=== PATIENT | female | born 1960 | race Caucasian/White ===

== ENCOUNTER 2017-05-09 18:25 | Emergency (ER) | payer MEDICARE, OTHER ==
[~2017-05-09] VITALS: Ht 162.6 cm; Wt 74.8 kg
[~2017-05-09 18:25] MED LIST: ANTIVERT25 MG PO; ASPIRIN EC81 MG PO; AZITHROMYCIN500 MG PO; BUSPIRONE HCL15 MG PO; BUSPIRONE HCL30 MG PO; CALTRATE 600 +1 EAC1 PO; CYMBALTA60 MG PO; DAILY VITAMIN1 EAC2 PO; DEPAKOTE ER250 MG PO; DIPHENHYDRAMINE50 MG PO; DIVALPROEX SOD250 M1 PO; DIVALPROEX SOD500 MG PO; DSS250 MG PO; EFFEXOR XR150 MG PO; EFFEXOR XR37.5 MG PO; FLUCONAZOLE150 MG PO; FOLTANX TABLET1 EACH PO; GABAPENTIN400 MG PO; GABAPENTIN600 MG PO; GEODON40 MG PO; GLIPIZIDE ER2.5 MG PO; IBUPROFEN600 MG PO; JANUVIA100 MG PO; JANUVIA25 MG PO; KLONOPIN2 MG PO; LASIX20 MG PO; LEVOTHYROXINE50 MCG PO; MAPAP325 MG PO; METFORMIN HCL500 MG PO; MILK OF MA400 MG/5 M PO; MYRBETRIQ50 MG PO; NAPROXEN500 MG PO; NORCO 5-325 TA1 EACH PO; PEPCID40 MG PO; PRAVASTATIN SOD20 MG PO; PRAZOSIN HCL1 MG PO; PROTONIX40 MG PO; QVAR7.3 G1 INH; QVAR7.3 GM INH; SENNA8.6 MG PO; SEPTRA DS TABL1 EACH PO; STOOL SOFTENER PO; SULFAMETHOXAZO1 EAC1 PO; SULFAMETHOXAZO1 EACH PO; TAB A VITE1 EACH PO; TRAMADOL HCL50 MG PO; TRAZODONE HCL150 MG PO; VALPROIC ACID250 MG PO; VENLAFAXINE HC150 MG PO; VENLAFAXINE HCL75 M1 PO; VITAMIN D PO; VITAMIN D1000 UNIT PO; VITAMIN D32000 UNIT PO; WELLBUTRIN SR100 MG PO
--- OUTSIDE RECORDS SUMMARY | 2017-05-09 18:53 | XMS ---
Demographics + + + | Address | [address] | | | [address] | | | [place] [address] | + + + | Preferred Language | Unknown | + + + | Marital Status | Unknown | + + + | Adventist Affiliation | Unknown | + + + | Race | Unknown | + + + | Ethnic Group | Unknown | + + + Author + + + | Author | [facility] | + + + | Organization | [facility] | + + + | Address | [address] | | | [place] [address] | + + + | Phone | | + + + Care Team Providers + + + + | Care Bright Cutter Name | Role | Phone | + + + + Unavailable | Unavailable | + + + + PROBLEMS +---------+ + + +--------+ + + | Type | Condition | ICD9-CM | [id number] | Onset | Condition | SNOMED | | | | Code | Code | Dates | Status | Code | +---------+ + + +--------+ + + | Problem | Slow | | K59.01 | | Active | [id number] | | | transit | | | | | | | | constipati | | | | | | | | on | | | | | | +---------+ + + +--------+ + + | Problem | Arthritis | | M19.90 | | Active | 9813029 | +---------+ + + +--------+ + + | Problem | Seizure | | G40.909 | | Active | 782166233 | | | disorder | | | | | | +---------+ + + +--------+ + + | Problem | Screening | Z13.89 | | | Active | [id number] | | | for | | | | | | | | alcoholism | | | | | | +---------+ + + +--------+ + + | Problem | Schizoaffe | | F25.1 | | Active | 91566332 | | | ctive | | | | | | | | disorder, | | | | | | | | depressive | | | | | | | | type | | | | | | +---------+ + + +--------+ + + | Problem | Mixed | | N39.46 | | Active | [id number] | | | incontinen | | | | | | | | ce | | | | | | +---------+ + + +--------+ + + | Problem | Need for | | Z41.8 | | Active | | | | prophylaxi | | | | | | | | s against | | | | | | | | urinary | | | | | | | | tract | | | | | | | | infection | | | | | | +---------+ + + +--------+ + + | Problem | Unspecifie | | F79 | | Active | 83111280 | | | d | | | | | | | | intellectu | | | | | | | | al | | | | | | | | disabiliti | | | | | | | | es | | | | | | +---------+ + + +--------+ + + | Problem | Dyspepsia | R10.13 | | | Active | 500573606 | +---------+ + + +--------+ + + | Problem | Acquired | E03.9 | | | Active | 989804843 | | | hypothyroi | | | | | | | | dism | | | | | | +---------+ + + +--------+ + + | Problem | Hyperchole | | E78.0 | | Active | 56871957 | | | sterolemia | | | | | | +---------+ + + +--------+ + + | Problem | Type 2 | E11.9 | | | Active | 387166976 | | | diabetes | | | | | | | | mellitus | | | | | | | | without | | | | | | | | complicati | | | | | | | | on | | | | | | +---------+ + + +--------+ + + | Problem | 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 | | | Active | [id number] | | | obesity | | | | | | | | due to | | | | | | | | excess | | | | | | | | calories | | | | | | +---------+ + + +--------+ + + | Problem | Vitamin D | | E55.9 | | Active | 78732807 | | | deficiency | | | | | | +---------+ + + +--------+ + + ALLERGIES No Information SOCIAL HISTORY Never Assessed PLAN OF CARE VITAL SIGNS MEDICATIONS Unknown Medications RESULTS No Results PROCEDURES No Known procedures IMMUNIZATIONS No Known Immunizations MEDICAL (GENERAL) HISTORY + + + + | Type | Description | Date | + + + + | Medical History | Seizure disorder last | | | | episode 2009 | | + + + + | Medical History | DM | | + + + + | Medical History | Asthma | | + + + + | Medical History | Allergies | | + + + + | Medical History | Sleep Apnea on CPAP has not | | | | used it much at all, does | | | | not like the mask | | + + + + | Medical History | Urinary Incontinence | | | | urologwilliam Amado | | + + + + | Medical History | | | + + + + | Medical History | GERD contributing to | | | | chronic Laryngitis - ENT Dr | | | | Sera was started on PPI | | | | 01/16/12 | | + + + + | Medical History | Hypothyriod TSH 4.95 07/20/12 | | + + + + | Medical History | Schizoaffective d/o 295.7 | | + + + + | Medical History | PTSD 309.81 | | + + + + | Medical History | Personality d/o 301.9 | | + + + + | Medical History | Mild Mental Retardation 317 | | + + + + | Medical History | Irritable Bowel Syndrome | | | | (on Lomotil prior to 2007 | | | | to 05/17/11, d/c'ed due to | | | | possibley contributing to | | | | confusion.Gian started | | | | 12/2007 to 07/2011 when she | | | | transfered care 09/2011 it | | | | was not listed, but it was | | | | not d/c'ed by previous PCP) | | + + + + | Medical History | Hypothyroid | | + + + + | Medical History | Onychomycosis toes | | + + + + | Medical History | Medical nutrition therapy | | | | by registerd dietitian is | | | | recommended and obtained | | | | 11/07/12 | | + + + + | Medical History | pt indicates in case of | | | | events resulting in a | | | | vegitative state where she | | | | is non verbal and non | | | | ambulatory she does not | | | | want to be maintained on | | | | artificial nutrition. | | | | 11/17/16 | | + + + + | Surgical History | Kidney stones | | + + + + | Surgical History | Foot Surgery | | + + + + | Surgical History | Colonoscopy Dr Elba encarnacion | 03/05/12 | | | appearing colon and anal | | | | rectum | | + + + + | Surgical History | Cholecystectomy | | + + + + | Surgical History | Papsmear Dr Marlow | 06/07/10 07/12/11 | + + + + | Surgical History | Mammogram | 03/09/17 | + + + + | Surgical History | Colposcopy Dr Marlow | 07/07/10 | + + + + | Surgical History | DARIEN b/l LE 1.0, nl values, | 01/10/13 | | | Dr Kyle | | + + + + | Surgical History | EEG - nl | 02/06/13 | + + + + | Surgical History | Occult blood IA stool | 04/15/16 | | | negative | | + + + + | Hospitalization History | [facility] re: diarrhea | 02/07/12 | + + + + | Hospitalization History | [facility] re: abdominal pain | 03/09/12 | + + + + | Hospitalization History | [facility] re: b/l ear pain | 08/14/12 | + + + + | Hospitalization History | [facility] re: blood mixed in | 08/20/12 | | | her stool | | + + + + | Hospitalization History | [facility] re: chest pain, acid | 09/28/12 | | | reflux | | + + + + | Hospitalization History | [facility] re: elevated BS, | 12/10/12 | | | asymptomatic | | + + + + | Hospitalization History | [facility] re: R hand pain, x-ray | 12/24/12 | | | negative | | + + + + | Hospitalization History | [facility] re: felt ill at | 01/06/13 | | | restaurant, dizzy belly | | | | pain loose BM | | + + + + | Hospitalization History | [facility] re: R Knee pain | 02/24/13 | + + + + | Hospitalization History | [facility] re: R knee pain, | 03/16/13 | | | fall | | + + + + | Hospitalization History | [facility] re: abdominal pain | 04/05/13 | + + + + | Hospitalization History | [facility] re: fall | 05/19/13 | + + + + | Hospitalization History | [facility] re: L knee pain | 06/17/13 | + + + + | Hospitalization History | [facility] re: pt was scared | 06/26/13 | | | and went to ER, but made | | | | the story that she had | | | | taken too much medicaitons. | | + + + + | Hospitalization History | [facility] re: L foot postop | 09/21/13 | + + + + | Hospitalization History | [facility] re: trouble | 10/15/13 | | | breathing | | + + + + | Hospitalization History | [facility] re: R arm pain | 10/20/13 | + + + + | Hospitalization History | [facility] re: BS | 12/07/13 | + + + + | Hospitalization History | [facility] re: L knee pain | 12/27/13 | + + + + | Hospitalization History | [facility] re: cough, SOB, | 04/05/14 | | | dizzy, hotflashes | | + + + + | Hospitalization History | [facility] re:SOB | 05/31/14 | + + + + | Hospitalization History | [facility] re:cough | 06/30/13 | + + + + | Hospitalization History | [facility] re: R ear abrasion | 10/02/14 | | | bleeding | | + + + + | Hospitalization History | [facility] re: weakness | 11/02/15 | + + + + | Hospitalization History | [facility] re: vertigo | 02/19/16 | + + + + | Hospitalization History | [facility] re: abscess, abd | 05/02/16 | + + + + | Hospitalization History | [facility] re: chest pain | 11/10/16 | + + + +"
--- OUTSIDE RECORDS SUMMARY | 2017-05-09 18:53 | XMS ---
Demographics + + + | Address | [address] | | | [address] | | | [place] [address] | + + + | Preferred Language | Unknown | + + + | Marital Status | Unknown | + + + | Mosque Affiliation | Unknown | + + + | Race | Unknown | + + + | Ethnic Group | Unknown | + + + Author + + + | Author | [facility] | + + + | Organization | [facility] | + + + | Address | [address] | | | [place] [address] | + + + | Phone | | + + + Care Team Providers + + + + | Care Rubber Trimmer Name | Role | Phone | + + + + Unavailable | Unavailable | + + + + PROBLEMS +---------+ + + +--------+ + + | Type | Condition | ICD9-CM | [id number] | Onset | Condition | SNOMED | | | | Code | Code | Dates | Status | Code | +---------+ + + +--------+ + + | Problem | Slow | | K59.01 | | Active | [id number] | | | transit | | | | | | | | constipati | | | | | | | | on | | | | | | +---------+ + + +--------+ + + | Problem | Arthritis | | M19.90 | | Active | 6961481 | +---------+ + + +--------+ + + | Problem | Seizure | | G40.909 | | Active | 934934156 | | | disorder | | | | | | +---------+ + + +--------+ + + | Problem | Screening | Z13.89 | | | Active | 496386010 | | | for | | | | | | | | alcoholism | | | | | | +---------+ + + +--------+ + + | Problem | Schizoaffe | | F25.1 | | Active | 49248133 | | | ctive | | | | | | | | disorder, | | | | | | | | depressive | | | | | | | | type | | | | | | +---------+ + + +--------+ + + | Problem | Mixed | | N39.46 | | Active | 142414735 | | | incontinen | | | [...] | | F79 | | Active | 03853914 | | | d | | | | | | | | intellectu | | | | | | | | al | | | | | | | | disabiliti | | | | | | | | es | | | | | | +---------+ + + +--------+ + + | Problem | Dyspepsia | R10.13 | | | Active | 613430414 | +---------+ + + +--------+ + + | Problem | Acquired | E03.9 | | | Active | 215083406 | | | hypothyroi | | | | | | | | dism | | | | | | +---------+ + + +--------+ + + | Problem | Hyperchole | | E78.0 | | Active | 84694905 | | | sterolemia | | | | | | +---------+ + + +--------+ + + | Problem | Type 2 | E11.9 | | | Active | 165348299 | | | diabetes | | | [...] | E66.09 | | | Active | 403151836 | | | obesity | | | | | | | | due to | | | | | | | | excess | | | | | | | | calories | | | | | | +---------+ + + +--------+ + + | Problem | Vitamin D | | E55.9 | | Active | 50923719 | | | deficiency | | | | | | +---------+ + + +--------+ + + ALLERGIES Unknown Allergies SOCIAL HISTORY No smoking Hx information available PLAN OF CARE VITAL SIGNS MEDICATIONS Unknown Medications RESULTS No Results PROCEDURES No Known procedures IMMUNIZATIONS No Known Immunizations"
--- OUTSIDE RECORDS SUMMARY | 2017-05-09 18:53 | XMS ---
Demographics + + + | Address | [address] | | | [address] | | | [place] [address] | + + + | Preferred Language | Unknown | + + + | Marital Status | Unknown | + + + | Tenriism Affiliation | Unknown | + + + | Race | Unknown | + + + | Ethnic Group | Unknown | + + + Author + + + | Author | [facility] | + + + | Organization | [facility] | + + + | Address | [address] | | | [place] [address] | + + + | Phone | | + + + Care Team Providers + + + + | Care Box Sorter Name | Role | Phone | + + + + Unavailable | Unavailable | + + + + PROBLEMS +---------+ + + +--------+ + + | Type | Condition | ICD9-CM | [id number] | Onset | Condition | SNOMED | | | | Code | Code | Dates | Status | Code | +---------+ + + +--------+ + + | Problem | Slow | | K59.01 | | Active | 78680875 | | | transit | | | | | | | | constipati | | | | | | | | on | | | | | | +---------+ + + +--------+ + + | Problem | Arthritis | | M19.90 | | Active | 4052756 | +---------+ + + +--------+ + + | Problem | Seizure | | G40.909 | | Active | 300054753 | | | disorder | | | | | | +---------+ + + +--------+ + + | Problem | Screening | Z13.89 | | | Active | 937720387 | | | for | | | | | | | | alcoholism | | | | | | +---------+ + + +--------+ + + | Problem | Schizoaffe | | F25.1 | | Active | 80315270 | | | ctive | | | | | | | | disorder, | | | | | | | | depressive | | | | | | | | type | | | | | | +---------+ + + +--------+ + + | Problem | Mixed | | N39.46 | | Active | 038920387 | | | incontinen | | | [...] | | F79 | | Active | 89857681 | | | d | | | | | | | | intellectu | | | | | | | | al | | | | | | | | disabiliti | | | | | | | | es | | | | | | +---------+ + + +--------+ + + | Problem | Dyspepsia | R10.13 | | | Active | 689356988 | +---------+ + + +--------+ + + | Problem | Acquired | E03.9 | | | Active | 840567094 | | | hypothyroi | | | | | | | | dism | | | | | | +---------+ + + +--------+ + + | Problem | Hyperchole | | E78.0 | | Active | 57984961 | | | sterolemia | | | | | | +---------+ + + +--------+ + + | Problem | Type 2 | E11.9 | | | Active | 562763710 | | | diabetes | | | [...] | E66.09 | | | Active | 780183995 | | | obesity | | | | | | | | due to | | | | | | | | excess | | | | | | | | calories | | | | | | +---------+ + + +--------+ + + | Problem | Vitamin D | | E55.9 | | Active | 88606207 | | | deficiency | | | | | | +---------+ + + +--------+ + + ALLERGIES + + + + +--------+ | Substance | Reaction | Event Type | Date | Status | + + + + +--------+ | Amoxicillin | rash, trouble | Drug Allergy | Nov, | Active | | | breathing | | | | + + + + +--------+ | Metformin HCl | possible | Drug Allergy | Nov, | Active | | | diarrhea | | | | + + + + +--------+ | Lomotil | possible | Drug Allergy | Nov, | Active | | | confusion | | | | + + + + +--------+ SOCIAL HISTORY No smoking Hx information available PLAN OF CARE + +---------+ | Activity | Details | + +---------+ +---+ | | +---+ + + + | Follow Up | 4 Months Reason:null | + + + VITAL SIGNS + + + + | Height | 64 in | 2016-11-17 | + + + + | Weight | 149.2 lbs | 2016-11-17 | + + + + | BMI | 25.61 kg/m2 | 2016-11-17 | + + + + | Temperature | 98.7 degrees Fahrenheit | 2016-11-17 | + + + + | Heart Rate | 73 /min | 2016-11-17 | + + + + | Blood pressure systolic | 138 mm Hg | 2016-11-17 | + + + + | Blood pressure diastolic | 80 mm Hg | 2016-11-17 | + + + + MEDICATIONS + + + + + + + +--------+ | Medicati | Instruct | Dosage | Frequenc | Start | End Date | Duration | Status | | on | ions | | y | Date | | | | + + + + + + + +--------+ | Docusate | Orally | 1 | 12h | | | | Active | | Sodium | bid | capsule | | | | | | | 250 MG | | as | | | | | | | | | needed | | | | | | + + + + + + + +--------+ | Vitamin | Orally | 1 | 24h | | | | Active | | D3 1000 | Once a | capsule | | | | | | | UNIT | day | | | | | | | + + + + + + + +--------+ | Venlafax | Orally | 1 | 24h | | | | Active | | ine HCl | Once a | capsule | | | | | | | 300 mg | day | with | | | | | | | | | food | | | | | | + + + + + + + +--------+ | Acetamin | Orally | 1 | 6h | | | | Active | | ophen | every 6 | capsules | | | | | | | 650 mg | hrs | as | | | | | | | | | needed | | | | | | + + + + + + + +--------+ | Caltrate | | | | | | | Active | | 600+D | | | | | | | | | 600-800 | | | | | | | | | MG-UNIT | | | | | | | | + + + + + + + +--------+ | BuPROPio | Orally | 1 tablet | 12h | | | | Active | | n HCl | Twice a | | | | | | | | 100 MG | day | | | | | | | + + + + + + + +--------+ | Metamuci | Orally | 1 tsp in | 24h | | | | Active | | l Smooth | daily | 8oz | | | | | | | Texture | | water | | | | | | | 58.6 % | | | | | | | | + + + + + + + +--------+ | Levothyr | | TAKE ONE | | | | | Active | | oxine | | TABLET | | | | | | | Sodium | | BY MOUTH | | | | | | | 50 MCG | | EVERY | | | | | | | | | MORNING | | | | | | | | | ON EMPTY | | | | | | | | | STOMACH | | | | | | + + + + + + + +--------+ | Foltanx | Orally | 1 tablet | 12h | | | | Active | | 3-35-2 | Twice a | | | | | | | | MG | day | | | | | | | + + + + + + + +--------+ | BusPIRon | Orally | 1 tablet | | | | | Active | | e HCl 30 | Three a | | | | | | | | mg | day | | | | | | | | | breakfas | | | | | | | | | t, | | | | | | | | | lunch, | | | | | | | | | dinner | | | | | | | + + + + + + + +--------+ | Gabapent | Orally | 1 tablet | 8h | | | | Active | | in 300 | tid | | | | | | | | MG | | | | | | | | + + + + + + + +--------+ | Magnesiu | Orally | 1 tablet | 24h | | | | Active | | m 100 mg | daily | with | | | | | | | | | food | | | | | | + + + + + + + +--------+ | Senokot | Orally | 1 tablet | 12h | | | | Active | | S 8.6-50 | Twice a | | | | | | | | MG | day | | | | | | | + + + + + + + +--------+ | Famotidi | | TAKE ONE | | | | | Active | | ne 40 MG | | TABLET | | | | | | | | | BY MOUTH | | | | | | | | | TWICE A | | | | | | | | | DAY | | | | | | + + + + + + + +--------+ | Senna | Orally | 1 | 24h | | | | Active | | 8.6 MG | Once a | capsules | | | | | | | | day | at | | | | | | | | | bedtime | | | | | | | | | as | | | | | | | | | needed | | | | | | + + + + + + + +--------+ | Januvia | Orally | take one | 24h | | | 30 days | Active | | 25 MG | Once a | tablet | | | | | | | | day | by mouth | | | | | | | | | every | | | | | | | | | day | | | | | | + + + + + + + +--------+ | Geodon | Orally | 1 | 24h | | | | Active | | 40 mg | daily | capsule | | | | | | | | | with | | | | | | | | | food | | | | | | + + + + + + + +--------+ | Symbicor | Inhalati | 1 puff | 12h | 18 Sep, | 13 October, | | Active | | t 80-4.5 | on Twice | | | 2017 | 2018 | | | | MCG/ACT | a day | | | | | | | + + + + + + + +--------+ | Pravasta | Orally | 1 tablet | 24h | | | | Active | | tin | Once a | | | | | | | | Sodium | day | | | | | | | | 20 MG | | | | | | | | + + + + + + + +--------+ RESULTS No Results PROCEDURES + + + + + | Procedure | Date Ordered | Related Diagnosis | Body Site | + + + + + | Office Visit, Est | November 17, 2016 | | | | Pt., Level 4 | | | | + + + + + IMMUNIZATIONS No Known Immunizations"
[2017-05-09] MEDS ORDERED: DUCODYL5 MG PO (20:31)
== END 2017-05-09 20:50 | disposition home or self-care (01) ==
LOC: ED 18:25
DX: K59.00 Constipation, unspecified (principal); E11.9 Type 2 diabetes mellitus without complications; Z87.442 Personal history of urinary calculi; Z90.710 Acquired absence of both cervix and uterus; Z90.49 Acquired absence of other specified parts of digestive tract; Z91.038 Other insect allergy status; Z79.899 Other long term (current) drug therapy
CPT/HCPCS: 74177; 80053; 81001; 83690; 84703; 85025; 96374; 96375; 99284; J1885; J2405; Q9967

== ENCOUNTER 2017-07-18 17:54 | Emergency (ER) | payer MEDICARE, OTHER ==
[~2017-07-18] VITALS: Ht 162.6 cm; Wt 74.8 kg
--- OUTSIDE RECORDS SUMMARY | ~2017-07-18 | XMS | Clinical Summary ---
Demographics + + + | Address | [address] | | | [place] [address] | + + + | Home Phone | | + + + | Preferred Language | Unknown | + + + | Marital Status | Single | + + + | Temple Affiliation | Unknown | + + + [...] | Unavailable | + + + Support +------+ +---------+ + | Name | Relationship | Address | Phone | +------+ +---------+ + ECON | Unknown | | +------+ +---------+ + Care Team Providers + +------+ + | Care Safe Expert Name | Role | Phone | + +------+ + | Mehdi Zavaleta DO | PP | | + +------+ + Source Comments [facility] is fully live on both [facility] Amb[facility] and [facility] InPatient.[facility] Allergies No Known Allergies Current Medications + [...]
--- OUTSIDE RECORDS SUMMARY | ~2017-07-18 | XMS | Clinical Summary ---
Demographics + + + | Address | [address] | | | [place] [address] | + + + | Home Phone [...] Team Providers + +------+ + | Care Inspector Fibrous Wallboard Name | Role | Phone | + +------+ + | Mehdi Zavaleta DO | PP | | + +------+ + Source Comments [facility] is fully live on both [facility] and [facility] InPatient.[facility] Allergies No Known Allergies Current Medications [...]
[~2017-07-18 17:54] MED LIST changes: +DUCODYL5 MG PO
[2017-07-18] MEDS ORDERED: MELOXICAM15 MG PO (20:53)
== END 2017-07-18 21:04 | disposition home or self-care (01) ==
LOC: ED 17:54
DX: S46.911A Strain of unspecified muscle, fascia and tendon at shoulder and upper arm level, right arm, initial encounter (principal); E11.9 Type 2 diabetes mellitus without complications; Z91.030 Bee allergy status; Z88.5 Allergy status to narcotic agent; Z79.899 Other long term (current) drug therapy; X58.XXXA Exposure to other specified factors, initial encounter
CPT/HCPCS: 99283

== ENCOUNTER 2017-08-16 20:18 | Emergency (ER) | payer MEDICARE, OTHER ==
[~2017-08-16] VITALS: Ht 162.6 cm; Wt 74.8 kg
--- OUTSIDE RECORDS SUMMARY | ~2017-08-16 | XMS | Clinical Summary ---
Demographics + + + | Address | [address] | | | [place] [address] | + + + | Home Phone | | + + + | Preferred Language | Unknown | + + + | Marital Status | Single | + + + | Hinduism Affiliation | Unknown | + + + | Race | White | + + + | Ethnic Group | Not or | + + + Author + + + | Author | [facility] REVENUE LOC[facility] | + + + | Organization | NON REVENUE LOCATIONS | + + + | Address | Unknown | + + + | Phone | Unavailable | + + + Support + + +---------+ + | Name | Relationship | Address | Phone | + + +---------+ + | DALILA DURAN | ECON | Unknown | | + + +---------+ + Care Team Providers + +------+ + | Care Jacquard Fixer Name | Role | Phone | + +------+ + | Mehdi Zavaleta DO | PP | | + +------+ + Source Comments [facility] is fully live on both [facility] Amb[facility] and [facility] InPatient.[facility] Allergies No Known Allergies Current Medications + + +-------+---------+------+------+-------+ | Prescription | Sig. | Disp. | Refills | Star | End | Statu | | | | | | t | Date | s | | | | | | Date | | | + + +-------+---------+------+------+-------+ | DIPHENHYDRAMINE | Take by mouth. | | | | | Activ | | HCL (BENADRYL ORAL) | | | | | | e | + + +-------+---------+------+------+-------+ | busPIRone 15 mg | Take 15 mg by mouth | | | | | Activ | | oral tablet | two times daily. | | | | | e | + + +-------+---------+------+------+-------+ | divalproex ER 250 | Take 250 mg by mouth | | | | | Activ | | mg oral tablet | once daily. | | | | | e | | extended release 24 | | | | | | | | hr | | | | | | | + + +-------+---------+------+------+-------+ | venlafaxine XR 150 | Take 150 mg by mouth | | | | | Activ | | mg oral | two times daily. | | | | | e | | capsule,extended | | | | | | | | release 24hr | | | | | | | + + +-------+---------+------+------+-------+ | famotidine 40 mg | Take 40 mg by mouth | | | | | Activ | | oral tablet | two times daily. | | | | | e | + + +-------+---------+------+------+-------+ | gabapentin 300 mg | Take 300 mg by mouth | | | | | Activ | | oral capsule | three times daily. | | | | | e | + + +-------+---------+------+------+-------+ | gabapentin 600 mg | Take 600 mg by mouth | | | | | Activ | | oral tablet | three times daily. | | | | | e | + + +-------+---------+------+------+-------+ | glipiZIDE 2.5 mg | Take 2.5 mg by mouth | | | | | Activ | | oral tablet | once daily with | | | | | e | | | breakfast. | | | | | | + + +-------+---------+------+------+-------+ | sitaGLIPtin | Take 50 mg by mouth | | | | | Activ | | (JANUVIA) 50 mg oral | once daily. | | | | | e | | tablet | | | | | | | + + +-------+---------+------+------+-------+ | levothyroxine 50 | Take 50 mcg by mouth | | | | | Activ | | mcg oral tablet | once daily. | | | | | e | + + +-------+---------+------+------+-------+ | pravastatin 20 mg | Take 20 mg by mouth | | | | | Activ | | oral tablet | once daily at | | | | | e | | | bedtime. | | | | | | + + +-------+---------+------+------+-------+ | prazosin 2 mg oral | Take 2 mg by mouth | | | | | Activ | | capsule | two times daily. | | | | | e | + + +-------+---------+------+------+-------+ | beclomethasone 40 | Inhale 2 puffs. | | | | | Activ | | mcg/actuation | | | | | | e | | inhalation aerosol | | | | | | | | (aero) | | | | | | | + + +-------+---------+------+------+-------+ | cholecalciferol, | Take 2,000 Units by | | | | | Activ | | Vitamin D3, (VITAMIN | mouth once daily. | | | | | e | | D3) 2,000 unit oral | | | | | | | | capsule | | | | | | | + + +-------+---------+------+------+-------+ | senna (SENNA) 8.6 | Take 8.6 mg by mouth | | | | | Activ | | mg oral tablet | once daily. | | | | | e | + + +-------+---------+------+------+-------+ | CALCIUM CARBONATE | Take by mouth. | | | | | Activ | | (CALTRATE 600 ORAL) | | | | | | e | + + +-------+---------+------+------+-------+ | MAGNESIUM ORAL | Take 50 mg by mouth. | | | | | Activ | | | | | | | | e | + + +-------+---------+------+------+-------+ | | Take by mouth. | | | | | Activ | | MV/FA/D3/K/LYCOP/LUT | | | | | | e | | /HERB#220 | | | | | | | | (ESTROBLEND ORAL) | | | | | | | + + +-------+---------+------+------+-------+ Active Problems + + + | Problem | Noted Date | + + + | Unqualified visual loss of both eyes | 11/01/2014 | + + + | Subjective visual disturbance | 11/01/2014 | + + + + + | Overview: ICD10 | + + + + + | Visual field defect | 11/01/2014 | + + + + + | Overview: ICD10 | + + + + + | Drusen (degenerative) of retina | 11/01/2014 | + + + Social History + +-------+ [...] on file | | + + + Plan of Treatment + + + + + | Health Maintenance | Due Date | Last Done | Comments | + + + + + | INFLUENZA VACCINE | | | | | (FLU SHOT) | 7 | | | + + + + + Results Not on filefrom Last 3 Months"
--- OUTSIDE RECORDS SUMMARY | ~2017-08-16 | XMS | Clinical Summary ---
Demographics + + + | Address | [address] | | | [place] [address] | + + + | Home Phone | | + + + | Preferred Language | Unknown | + + + | Marital Status | Single | + + + | Orthodox Affiliation | Unknown | + + [...] Team Providers + +------+ + | Care Circuit Tester Name | Role | Phone | + +------+ + | Mehdi Zavaleta DO | PP | | + +------+ + Source Comments STEVEN is fully live on both [facility] Allergies No Known Allergies Current Medications + [...]
[~2017-08-16 20:18] MED LIST changes: +MELOXICAM15 MG PO
[2017-08-16] MEDS ORDERED: BACTRIM 400-801 EACH PO (21:27)
--- NOTE | 2017-08-18 07:21 | EKG ---
[facility] [address] [place], [place] [address] Signed Normal sinus rhythm Cannot rule out Anterior infarct , age undetermined Abnormal ECG When compared with ECG of 10-NOV-2016 15:34, No significant change was found Confirmed by SEEMA BROOKS MD ([id number]) on 08/18/2017 7:21:38 AM Electronically Signed By: SEEMA BROOKS MD 08/18/17 0721 PATIENT NAME: MARCO DURAN Electrocardiogram DATE OF : 60 PHYSICIAN: SEEMA BROOKS MD REPORT #: [id number] REPORT IS CONFIDENTIAL AND NOT TO BE RELEASED WITHOUT AUTHORIZATION
== END 2017-08-16 22:13 | disposition home or self-care (01) ==
LOC: ED 20:18
DX: R07.89 Other chest pain (principal); E11.9 Type 2 diabetes mellitus without complications; J45.909 Unspecified asthma, uncomplicated; Z88.0 Allergy status to penicillin; Z88.5 Allergy status to narcotic agent; Z91.030 Bee allergy status; Z79.899 Other long term (current) drug therapy; Z88.8 Allergy status to other drugs, medicaments and biological substances; Z79.84 Long term (current) use of oral hypoglycemic drugs
CPT/HCPCS: 71045; 71046; 80053; 84484; 85025; 85379; 93005; 93010; 96374; 99284; J1885

== ENCOUNTER 2018-02-18 19:10 | Emergency (ER) | payer MEDICARE, OTHER ==
[~2018-02-18] VITALS: Ht 162.6 cm; Wt 74.8 kg
[~2018-02-18 19:10] MED LIST changes: +BACTRIM 400-801 EACH PO
== END 2018-02-18 22:53 | disposition home or self-care (01) ==
LOC: ED 19:10
DX: M79.605 Pain in left leg (principal); E11.9 Type 2 diabetes mellitus without complications; Z91.030 Bee allergy status; Z88.0 Allergy status to penicillin; Z88.5 Allergy status to narcotic agent; Z88.8 Allergy status to other drugs, medicaments and biological substances; Z79.899 Other long term (current) drug therapy
CPT/HCPCS: 93971; 99283

== ENCOUNTER 2018-03-10 16:42 | Emergency (ER) | payer MEDICARE, OTHER ==
[~2018-03-10] VITALS: Ht 162.6 cm; Wt 74.8 kg
--- OUTSIDE RECORDS SUMMARY | ~2018-03-10 | XMS | Clinical Summary ---
Demographics + + + | Address | [address] | | | [place] [address] | + + + | Home Phone | | + + + | Preferred Language | Unknown | + + + | Marital Status | Single | + + + | Zoroastrian Affiliation | Unknown | + + + [...] Team Providers + +------+ + | Care Railroad Mechanic Name | Role | Phone | + +------+ + | Mehdi Zavaleta DO | PP | | + +------+ + Source Comments STEVEN is fully live on both [facility] and [facility] Allergies No Known Allergies Current Medications + [...] | | | | (FLU SHOT) | 8 | | | + + + + + Results Not on filefrom Last 3 Months Insurance + +--------+ +--------+-------+---------+ | Payer | Benefi | Subscriber | Type | Phone | Address | | | t Plan | ID | | | | | | / | | | | | | | Group | | | | | + +--------+ +--------+-------+---------+ | HAND I BLOCKER MEDICAID | HAND I BLOCKER | xxxxxxxx | Medica | | | | | [place] | | id | | | | | [place] | | | | | + +--------+ +--------+-------+---------+ + +--------+ +--------+ + + | Guarantor Name | Accoun | Relation to | Date | Phone | Billing Address | | | t Type | Patient | of | | | | | | | | | | + +--------+ +--------+ + + | THERESA DURAN | Person | Self [birth year] Home: | [address] | | | al/Fam | | 1960 | [phone] | [address] [place] | | | [place] | | | [phone] | + +--------+ +--------+ + +"
--- OUTSIDE RECORDS SUMMARY | ~2018-03-10 | XMS | Clinical Summary ---
Demographics + + + | Address | [address] | | | [place] [address] | + + + | Home Phone | | + + + | Preferred Language | Unknown | + + + | Marital Status | Single | + + + | Moravian Affiliation | Unknown | + + + [...] Team Providers + +------+ + | Care Brewery Cellar Worker Name | Role | Phone | + +------+ + | Mehdi Zavaleta DO | PP | | + +------+ + Source Comments STEVEN is fully live on both [facility] and [facility] InPatient.[facility] Allergies No Known Allergies Current [...] | | | + +--------+ +--------+-------+---------+ | SOFTWARE DEVELOPMENT TEST ENGINEER MEDICAID | SOFTWARE DEVELOPMENT TEST ENGINEER | xxxxxxxx | Medica | | | [...] | [place] | | | [phone] | [phone] | + +--------+ +--------+ + +"
--- OUTSIDE RECORDS SUMMARY | 2018-03-10 16:48 | XMS ---
PreManage Notification: MARCO DURAN Security Gastroenterology Nurse Practitioner Events No recent Security Events currently on file CRITERIA MET - Group Notification - [facility] - 2 Visits in 30 Days CARE PROVIDERS NUBIA MUSA Internal Medicine 02/20/2018-Current PHONE: [phone] NUBIA MUSA Primary Care 03/05/2014-Current PHONE: [phone] Mariely has no Care Guidelines for this patient. Care History Medical/Surgical 02/20/2018 [facility] - Patient is currently established with [facility]. If patient is seen in the ED during business hours. Please contact CHWs at [facility]. Care Recommendation: This patient has had 5 or more Emergency Department visits in the last 12 months.\T\nbsp; Patient requires education on the scope and purpose of the ED as an acute care provider not a Primary Care Provider and should not be utilized for chronic conditions.\T\nbsp; These are guidelines and the provider should exercise clinical judgment when providing care. E.D. VISIT COUNT (12 MO.) 5 [facility] TOTAL 5 NOTE: Visits indicate total known visits. ED/UCC VISIT TRACKING (12 MO.) 03/10/2018 16:43 [facility] [place] TYPE: Emergency COMPLAINT: - R RING FINGER PAIN/INJURY 02/18/2018 19:11 [facility] [place] TYPE: Emergency COMPLAINT: - L LEG PAIN-NON INJURY DIAGNOSES: - Bee allergy status - Allergy status to penicillin - Type 2 diabetes mellitus without complications - Other senior care (current) drug therapy - Pain in left leg - Allergy status to narcotic agent status - Allergy status to other drugs, medicaments and biological substances status 08/16/2017 20:18 [facility] [place] TYPE: Emergency COMPLAINT: - CHEST PAIN DIAGNOSES: - Allergy status to penicillin - nursing home (current) use of oral hypoglycemic drugs - Type 2 diabetes mellitus without complications - Bee allergy status - Unspecified asthma, uncomplicated - Allergy status to narcotic agent status - Other chest pain - Allergy status to other drugs, medicaments and biological substances status - 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 [place] TYPE: Emergency COMPLAINT: - RLQ PAIN DIAGNOSES: - Type 2 diabetes mellitus without complications - Right lower quadrant pain - Acquired absence of other specified parts of digestive tract - Acquired absence of both cervix and uterus - Other insect allergy status - Personal history of urinary calculi - Constipation, unspecified - Other senior care (current) drug therapy INPATIENT VISIT TRACKING (12 MO.) No inpatient visits to display in this time frame [id number]
[2018-03-10] MEDS ORDERED: IBUPROFEN600 MG PO (17:27)
== END 2018-03-10 17:50 | disposition home or self-care (01) ==
LOC: ED 16:42
DX: S62.634A Displaced fracture of distal phalanx of right ring finger, initial encounter for closed fracture (principal); S66.304A Unspecified injury of extensor muscle, fascia and tendon of right ring finger at wrist and hand level, initial encounter; W22.8XXA Striking against or struck by other objects, initial encounter; E11.9 Type 2 diabetes mellitus without complications; J45.909 Unspecified asthma, uncomplicated; Z91.030 Bee allergy status; Z88.0 Allergy status to penicillin; Z88.5 Allergy status to narcotic agent; Z88.8 Allergy status to other drugs, medicaments and biological substances; Z79.899 Other long term (current) drug therapy
CPT/HCPCS: 73140; 99283

== ENCOUNTER 2020-02-27 11:39 | Emergency (ER) | payer MEDICARE, OTHER ==
[~2020-02-27] VITALS: Ht 162.6 cm; Wt 74.8 kg
--- OUTSIDE RECORDS SUMMARY | ~2020-02-27 | XMS | Encounter Summary ---
Demographics + + + | Address | [address] | | | [place] [address] | + + + | Home Phone | | + + + | Preferred Language | Unknown | + + + | Marital Status | Single | + + + | Gnosticism Affiliation | Unknown | + + + | Race | White | + + + | Ethnic Group | Not or | + + + Author + + + | Author | [facility] | + + + | Organization | [facility] | + + + | Address | Unknown | + + + | Phone | Unavailable | + + + Support + + +---------+ + | Name | Relationship | Address | Phone | + + +---------+ + | Jaswinder Black | ECON | Unknown | | + + +---------+ + Care Team Providers + +------+ + | Care Computer Security Specialist Name | Role | Phone | + +------+ + PCP | Unavailable | + +------+ + Encounter Details +--------+ + + + + | Date | Type | Department | Care Team | Description | +--------+ + + + + | 12/23/ | Document-Sc | UNKNOWN DEPARTMENT | Unknown . | | | 2013 | anned | [address] | | | | | | [address] | | | | | | [place], [place] | | | | | | [address] | | | +--------+ + + + + Social History + +-------+ +--------+------+ | Tobacco Use | Types | Packs/Day | Years | Date | | | | | Used | | + +-------+ +--------+------+ | Never Assessed | | | | | + +-------+ +--------+------+ + + + | Sex Assigned at | Date Recorded | | | | + + + | Not on file | | + + + documented as of this encounter Miscellaneous Notes Scan - Monica, Faculty - 12/23/2013 1:03 PM PDTElectronically signed by Faculty Monica at 1:03 PM PDTdocumented in this encounter Plan of Treatment Not on filedocumented as of this encounter Visit Diagnoses Not on filedocumented in this encounter"
--- OUTSIDE RECORDS SUMMARY | ~2020-02-27 | XMS | Encounter Summary ---
Demographics + + + | Address | [address] | | | [place] [address] | + + + | Home Phone | | + + + | Preferred Language | Unknown | + + + | Marital Status | Single | + + + | Faith Affiliation | Unknown | + + + | Race | White | + + + | Ethnic Group | Not or | + + + Author + + + | Author | [facility] | + + + | Organization | [facility] | + + + | Address | Unknown | + + + | Phone | Unavailable | + + + Support + + +---------+ + | Name | Relationship | Address | Phone | + + +---------+ + | Jaswinder Black | ECON | Unknown | | + + +---------+ + Care Team Providers + +------+ + | Care Maintenance Of Way Supervisor Name | Role | Phone | + +------+ + | Mehdi Zavaleta DO | PCP | | + +------+ + Reason for Visit + + + | Reason | Comments | + + + | New patient | | | consultation | | + + + Encounter Details +--------+---------+ + + + | Date | Type | Department | Care Team | Description | +--------+---------+ + + + | 10/31/ | Office | [facility] | Alber Medina MD,PhD | Subjective visual | | 2015 | Visit | [facility] | [address] | disturbance, | | | | at [facility] [address] | unspecified (Primary | | | | [address] [place] | [place], [place] | Dx); Unqualified | | | | [facility] [address] | [address] | visual loss of both | | | | floor [place], [place] | [phone] | eyes; Visual field | | | | [address] | | defect, unspecified; | | | | | | Drusen | | | | | | (degenerative) of | | | | | | retina, bilateral | +--------+---------+ + + + Social History + +-------+ +--------+------+ | Tobacco Use | Types | Packs/Day | Years | Date | | | | | Used | | + +-------+ +--------+------+ | Never Smoker | | | | | + +-------+ +--------+------+ + + + | Sex Assigned at | Date Recorded | | | | + + + | Not on file | | + + + documented as of this encounter Progress Notes Rod Craig - 10/31/2014 12:56 PM PDTFormatting of this note might be different from t he original. Ophthalmic Genetics New Patient Exam Referring Diagnosis: VF loss Referring Physician: Hans Sim, OD [facility] [address] [place] [id number] Theresa Black is a 54 y.o. female here for evaluation of decreasing vision. Patient repo rts noticing her vision started to worsen about 5 years ago. She states she is unable to don d small print and needs to get close in order to read signs and recognize people. She also r eports poor night vision and difficulty seeing objects and persons from the side. However, f rom the perspective of the caregiver, there does not seem to be changes in her visual behavi or out of the normal. She has 3 other siblings, one of which also lives in an adult mobile equipment servicer facility, and [facility] who lives alone, but requires assistance. The nature of the mental disability in this pa tient of her siblings is unknown to the behavioral health case manager here today. This patient is accompanied in the office by her adult mobile equipment servicer, Marycruz. Pain: No pain (0 of 0-10) Current Outpatient Prescriptions Medication beclomethasone 40 mcg/actuation inhalation aerosol (aero) busPIRone 15 mg oral tablet CALCIUM CARBONATE (CALTRATE 600 ORAL) cholecalciferol, Vitamin D3, (VITAMIN D3) 2,000 unit oral capsule DIPHENHYDRAMINE HCL (BENADRYL ORAL) divalproex ER 250 mg oral tablet extended release 24 hr famotidine 40 mg oral tablet gabapentin 300 mg oral capsule gabapentin 600 mg oral tablet glipiZIDE 2.5 mg oral tablet levothyroxine 50 mcg oral tablet MAGNESIUM ORAL MV/FA/D3/K/LYCOP/LUT/HERB#220 (ESTROBLEND ORAL) pravastatin 20 mg oral tablet prazosin 2 mg oral capsule senna (SENNA) 8.6 mg oral tablet sitaGLIPtin (JANUVIA) 50 mg oral tablet venlafaxine XR 150 mg oral capsule,extended release 24hr No current facility-administered medications for this visit. No Known Allergies Past Medical History (Nonocular): Past Surgical History (Nonocular): Past Medical History Diagnosis Date Diabetes mellitus, type 2 Thyroid disease Development delay Panic attacks History of seizure Balance problem Past Surgical History Procedure Laterality Date Toe surgery Tubal ligation Kidney stone surgery Past Ocular History: presbyopia Tobacco: History Smoking status Never Smoker Smokeless tobacco Not on file Review of Systems: Review of systems were reviewed by me at this visit utilizing Genetics patient questionnair e. Pertinent positives noted in history. All else unless noted was negative (fever, wt. ch elpidio, ENT, cardiovascular, respiratory, endocrine, GI, urinary, skin, muscle, bones, joints, neurologic, behavioral,endocrine, psychiatric, bleeding/blood disorders, AIDS/HIV, cancer o r tumors, arthritis) All else unless noted was negative (cataracts, retina, strabismus, amblyopia, low vision or blindness, refractive error, glaucoma, color or night blindness or unexplained vision loss) . Physical examination: Base Exam Visual Acuity (Snellen - Linear) Right Left Both Dist cc 20/80 20/80 20/70 Dist ph cc NI NI Near cc J7 J7 J7 Tonometry (Tonopen, 1:35 PM) Right Left Pressure 14 14 Wearing Rx Sphere Cylinder Beaman Add Right -0.75 +0.50 014 +2.50 Left -1.00 +0.50 163 +2.50 Type: Bifocal Manifest Refraction Sphere Cylinder Beaman Right -0.25 +0.50 180 Left -0.75 +0.75 003 Dilation Both eyes: 2.5% Phenylephrine, 1.0% Mydriacyl @ 1:35 PM Pupils Pupils Dark Light React APD Right PERRL 6 4 Brisk None Left PERRL 6 4 Brisk None Extraocular Movement Right Left Result Full, Ortho Full, Ortho Additional Tests Color Right Left [facility] - [place] [facility] 12/20 6/20 Slit Lamp and Fundus Exam External Exam Right Left External Normal Normal Slit Lamp Exam Right Left Lids/Lashes Normal Normal Conjunctiva/Sclera White and quiet White and quiet Cornea All layers clear All layers clear Anterior Chamber Deep and quiet Deep and quiet Iris Normal Normal Lens Clear Clear Vitreous Normal Normal Fundus Exam Right Left Disc Normal Normal C/D Ratio 0.3 0.3 Macula Drusen small, scattered Drusen small, scattered Vessels Normal Normal Periphery Normal Normal Edited by: Alber Medina MD,PhD I, Rod Craig, TARI, performed, reviewed or revised the above history, medications, all ergies, as well as performed elements noted in the Base Ophthalmology Exam. Fundus Photography Interpretation 10/30/2014: Dilated fundus photography demonstrated clear media in both eyes. In both eyes, the disc and vessels were unremarkable, but there were small yellow deposits in the macula O U. -Fundus Autofluorescence (AF) imaging showed small hyperAF deposits scattered in the macula OU. Optos Fluorescein Angiography Interpretation 10/31/2014: Arm-to-eye (OD) time was 15 sec. Early transit showed patchy choroidal filling a nd brisk arterial filling OD. Mid to late phase showed no abnormal fluorescence OU. Spectral Domain OCT Interpretation 10/30/2014: Line scans showed intact laminations and outer retinal architecture, and tiny de posits at level of RPE OU. -CFT was 238 microns OD and 243 microns OS. -RNFL mapping showed no thinning OD and no thinning OS. Visual Gatica Interpretation 10/30/2014: Using the Octopus 900 perimeter, kinetic perimetry disclosed severely constricte d peripheral isopters down to central island of 25 degrees OD and 15 degrees OS to size V4e. Using the W164a grid and the GATEi algorithm with the size V test target, static perimetry showed similar severe concentric constriction of sensitivity OU. -Mean sensitivity was 5.4 dB OD and 2.4 dB OS. -Positive catch trials were 0% OD and 0% OS. -Negative catch trials were 38% OD and 25% OS. Multifocal ERG Interpretation 10/30/2014: Amplitude Density Plot (P1) Latency Density Plot (P1) OD OS OD OS normal normal normal normal Amplitude Ring Average (P1) Latency Ring Average (P1) Ring # OD OS OD OS 1 normal supernormal normal normal 94.0 nv/deg2 106.7 nv/deg2 28.3 ms 29.9 ms 2 normal supernormal normal normal 3 normal normal normal normal 4 normal normal normal normal 5 normal normal normal normal 6 normal normal normal normal - This study of the regional macular photopic cone function demonstrated normal amplitudes and normal timing OU. Full Field ERG Interpretation 10/30/2014: Amplitude (b-wave) Implicit Time (b-wave) Scotopic OD OS OD OS Dim Flash normal normal normal prolonged Bright Flash mildly attenuated mildly attenuated normal normal Red-Blue Photopic OD OS OD OS Single Flash normal normal normal normal 30 Hz Flicker normal mildly attenuated normal normal - This full field ERG showed normal amplitudes and some abnormal implicit times of the nilson- dependent responses, as well as mostly normal amplitudes and normal implicit times of the co ne-dependent responses. - This pattern of mild unspecific dysfunction makes the likelihood of a diffuse retinal dys trophy low, and are likely due to medications. 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 Functional Overlay - There was some inconsistency between the reports of the patient and her caregiver regardi ng her visual behavior, however her BCVA is 20/80 and her visual field is severely constrict ed. Both of these findings are out of proportion to the multimodal imaging and ERG testing. The visual field was confounded by high false negative low reliability. The mfERG was normal , and the ffERG showed mild unspecific changes that are likely due to her multiple psychiatr ic medications. The only abnormality detected on examination and sdOCT are small drusen, whi ch are too mild to be affecting her vision. Thus, there is no objective evidence of retinal or optic nerve etiology to explain her poor visual acuity and constricted visual gatica, wh ich are psychophysical tests. Early-Onset Drusen - The examination and sdOCT are consistent with early-onset development of drusen, such as Dominant Drusen. Dominant drusen, also known as Malattia Leventinese or Doyne honeycomb reti nal dystrophy, is inherited in an autosomal dominant manner and associated with epidermal gr owth factor-containing fibrillin-like extracellular matrix protein-1, EFEMP1. Other differen tial includes cuticular drusen with membranoproliferative glomerulonephritis (MPGN) type II. The patient's drusen are not consistent with cuticular drusen, as they are not visible on F A. - Recommend observation. Plan: - Rec referral to neuroophthalmology to assess suspicion of central visual dysfunction vs. Functional overlay - Rec observation for mild drusen - [facility] ophthalmic genetics PRN TARI Massey M.D., Ph.D. [facility] Continuous Churn Ophthalmic Genetics & Retinal Degeneration Ocular Immunology & Uveitis Physician attestation: I personally interviewed the patient, reviewed and edited the corrections identification technician's history and docu mentation, and performed all elements of the documented examination. /Alber Medina M.D., Ph.D. documented in this enc ounter Plan of Treatment Not on filedocumented as of this encounter Procedures + +--------+ + + + | Procedure Name | Priori | Date/Time | Associated Diagnosis | Comments | | | ty | | | | + +--------+ + + + | MS | Routin | 11/01/2014 | Unqualified visual | | | ELECTRORETINOGRAPHY | e | 2:10 PM | loss of both eyes | | | | | PDT | Subjective visual | | | | | | disturbance, | | | | | | unspecified Visual | | | | | | field defect, | | | | | | unspecified | | + +--------+ + + + | MS | Routin | 11/01/2014 | Unqualified visual | | | ELECTRORETINOGRAPHY | e | 2:10 PM | loss of both eyes | | | | | PDT | Subjective visual | | | | | | disturbance, | | | | | | unspecified Visual | | | | | | field defect, | | | | | | unspecified | | + +--------+ + + + | MS FLUORESCEIN | Routin | 11/01/2014 | Unqualified visual | | | ANGIOGRAPHY | e | 2:10 PM | loss of both eyes | | | | | PDT | Subjective visual | | | | | | disturbance, | | | | | | unspecified Visual | | | | | | field defect, | | | | | | unspecified | | + +--------+ + + + | MS VISUAL FIELD | Routin | 11/01/2014 | Unqualified visual | | | EXAM,EXTENDED | e | 2:10 PM | loss of both eyes | | | | | PDT | Subjective visual | | | | | | disturbance, | | | | | | unspecified Visual | | | | | | field defect, | | | | | | unspecified | | + +--------+ + + + | RADIOLOGY | | 01/09/2014 | | Results for this | | | | 12:00 AM | | procedure are in the | | | | PDT | | results section. | + +--------+ + + + documented in this encounter Results RADIOLOGY (01/09/2014 12:00 AM PDT) + + + | Narrative | Performed At | + + + | | | + + + documented in this encounter Visit Diagnoses + + | Diagnosis | + + | Subjective visual disturbance, unspecified - Primary | + + | Unqualified visual loss of both eyes Unqualified visual loss, both eyes | + + | Visual field defect, unspecified | + + | Drusen (degenerative) of retina, bilateral | + + documented in this encounter
--- OUTSIDE RECORDS SUMMARY | ~2020-02-27 | XMS | Encounter Summary ---
Demographics + + + | Address | [address] | | | [place] [address] | + + + | Home Phone | | + + + | Preferred Language | Unknown | + + + | Marital Status | Single | + + + | Taoist Affiliation | Unknown | + + + | Race | White | + + + | Ethnic Group | Not or | + + + Author + + + | Author | [facility] | + + + | Organization | [facility] | + + + | Address | Unknown | + + + | Phone | Unavailable | + + + Support + + +---------+ + | Name | Relationship | Address | Phone | + + +---------+ + | Jaswinder Black | ECON | Unknown | | + + +---------+ + Care Team Providers + +------+ + | Care Creasing And Cutting Press Feeder Name | Role | Phone | + +------+ + | Mehdi Zavaleta | PCP | | + +------+ + Reason for Visit + + + | Reason | Comments | + + + | OCT - Macula | OU | + + + | Fundus photography | OU | + + + | Autofluorescence | OU | + + + Encounter Details +--------+ + + + + | Date | Type | Department | Care Team | Description | +--------+ + + + + | 10/30/ | Diagnostic | [facility] | | OCT - Macula (OU); | | 2014 | Visit | [facility] | | Fundus photography | | | | Photography at | | (OU); | | | | [facility] [address] | | Autofluorescence | | | | [address] | | (OU) | | | | Eye [place], [facility] | | | | | | floor [place], [place] | | | | | | [address] | | | +--------+ + + + [...] + documented as of this encounter Progress Norm Ricks - 10/30/2014 3:13 PM PDTThe interpretation for the following study: OCT - Macula - OU Fundus photography - OU Autofluorescence - OU can be found on physician encounter on 10/30/2014. documented in this encount er Plan of Treatment Not on filedocumented as of this encounter Visit Diagnoses + + | Diagnosis | + + | Abnormal electroretinogram (ERG) Nonspecific abnormal retinal function studies | + + | Unqualified visual loss of both eyes Unqualified visual loss, both eyes | + + | Subjective visual disturbance, unspecified | + + | Visual field defect, unspecified | + + documented in this encounter"
--- OUTSIDE RECORDS SUMMARY | ~2020-02-27 | XMS | Encounter Summary ---
Demographics + + + | Address | [address] | | | [place] [address] | + + + | Home Phone | | + + + | Preferred Language | Unknown | + + + | Marital Status | Single | + + + | Latter Day Affiliation | Unknown | + + + | Race | White | + + + | Ethnic Group | Not or | + + + Author + + + | Author | [facility] | + + + | Organization | [facility] | + + + | Address | Unknown | + + + | Phone | Unavailable | + + + Support + + +---------+ + | Name | Relationship | Address | Phone | + + +---------+ + | Jaswinder Black | ECON | Unknown | | + + +---------+ + Care Team Providers + +------+ + | Care Cloth Shearer Name | Role | Phone | + +------+ + | Pending Pcp Addition | PCP | Unavailable | + +------+ + Encounter Details +--------+ + + + + | Date | Type | Department | Care Team | Description | +--------+ + + + + | 05/19/ | Documentati | [facility] | Alber Medina MD,PhD | | | 2013 | on | [place] [facility] | [address] | | | | [place] [address] | [address] | | | | | [facility] [address] | [place], [place] | | | | | [facility] [place] | [address] | | | | | [place], [place] | [phone] | | | | | [address] | | | +--------+ + + + [...] documented as of this encounter Miscellaneous Notes Telephone Encounter - Alber Medina MD,PhD - 05/19/2014 6:59 PM PSTBased on the referral and chart notes from Dr. Hans Sim, I am ordering visual gatica, electroretinography, and fundus photography. documented in this enc ounter Plan of Treatment + + +--------+ + + | Name | Type | Priori | Associated Diagnoses | Order Schedule | | | | ty | | | + + +--------+ + + | GENETICS VISUAL | Procedures | Routin | Abnormal | Expected: 08/17/2014 | | FIELD | | e | electroretinogram | | | | | | (ERG) Unqualified | | | | | | visual loss of both | | | | | | eyes Subjective | | | | | | visual disturbance, | | | | | | unspecified Visual | | | | | | field defect, | | | | | | unspecified | | + + +--------+ + + | ERG | Procedures | Routin | Abnormal | Expected: 08/17/2014 | | | | e | electroretinogram | | | | | | (ERG) Unqualified | | | | | | visual loss of both | | | | | | eyes Subjective | | | | | | visual disturbance, | | | | | | unspecified Visual | | | | | | field defect, | | | | | | unspecified | | + + +--------+ + + | COLOR PHOTOGRAPHY | Procedures | Routin | Abnormal | Expected: 05/19/2014 | | | | e | electroretinogram | | | | | | (ERG) Unqualified | | | | | | visual loss of both | | | | | | eyes Subjective | | | | | | visual disturbance, | | | | | | unspecified Visual | | | | | | field defect, | | | | | | unspecified | | + + +--------+ + + | FUNDUS PHOTO | Procedures | Routin | Abnormal | Expected: 05/19/2014 | | AUTOFLUORESCENCE | | e | electroretinogram | | | | | | (ERG) Unqualified | | | | | | visual loss of both | | | | | | eyes Subjective | | | | | | visual disturbance, | | | | | | unspecified Visual | | | | | | field defect, | | | | | | unspecified | | + + +--------+ + + | CMPTR OPHTH DX IMG | Procedures | Routin | Abnormal | Expected: 05/19/2014 | | POST SEGMT | | e | electroretinogram | | | | | | (ERG) Unqualified | | | | | | visual loss of both | | | | | | eyes Subjective | | | | | | visual disturbance, | | | | | | unspecified Visual | | | | | | field defect, | | | | | | unspecified | | + + +--------+ + + documented as of this encounter Visit Diagnoses + + | Diagnosis | + + | Visual field defect, unspecified - Primary | + + | Abnormal electroretinogram (ERG) Nonspecific abnormal retinal function studies | + + | Unqualified visual loss of both eyes Unqualified visual loss, both eyes | + + | Subjective visual disturbance, unspecified | + + documented in this encounter"
--- OUTSIDE RECORDS SUMMARY | ~2020-02-27 | XMS | Encounter Summary ---
Demographics + + + | Address | [address] | | | [place] [address] | + + + | Home Phone | | + + + | Preferred Language | Unknown | + + + | Marital Status | Single | + + + | Oriental Orthodox Affiliation | Unknown | + + + | Race | White | + + + | Ethnic Group | Not or | + + + Author + + + | Author | [facility] | + + + | Organization | [facility] | + + + | Address | Unknown | + + + | Phone | Unavailable | + + + Support + + +---------+ + | Name | Relationship | Address | Phone | + + +---------+ + | Jaswinder Black | ECON | Unknown | | + + +---------+ + Care Team Providers + +------+ + | Care Cable Assembler And Swager Name | Role | Phone | + +------+ + PCP | Unavailable | + +------+ + Encounter Details +--------+ + + + + | Date | Type | Department | Care Team | Description | +--------+ + + + + | 02/06/ | Document-Sc | UNKNOWN DEPARTMENT | Unknown . | | | 2012 | anned | [address] [facility] | | | | | | [address] | | | | | | [place], [place] | | | | | | [address] | | | +--------+ + + + [...] + + documented as of this encounter Procedure Christin Nolan - 12/23/2013 7:51 AM PDTAssociated Order(s): ORDERS OTHERElectronically sig suhas by Faculty Monica at 12/23/2013 7:51 AM PDTdocumented in this encounter Plan of Treatment Not on filedocumented as of this encounter Procedures + +--------+ + + + | Procedure Name | Priori | Date/Time | Associated Diagnosis | Comments | | | ty | | | | + +--------+ + + + | ORDERS OTHER | | 02/06/2013 | | Results for this | | | | 12:00 AM | | procedure are in the | | | | PDT | | results section. | + +--------+ + + + documented in this encounter Results ORDERS OTHER (02/06/2013 12:00 AM PDT) + + + | Narrative | Performed At | + + + | | | | | | + + + + + | Procedure Note | + + | Other, Faculty - 12/23/2013 7:51 AM PDT | + + documented in this encounter Visit Diagnoses Not on filedocumented in this encounter"
--- OUTSIDE RECORDS SUMMARY | ~2020-02-27 | XMS | Encounter Summary ---
Demographics + + + | Address | [address] | | | [place] [address] | + + + | Home Phone | | + + + | Preferred Language | Unknown | + + + | Marital Status | Single | + + + | Yarsanism Affiliation | Unknown | + + + | Race | White | + + + | Ethnic Group | Not or | + + + Author + + + | Author | [facility] | + + + | Organization | [facility] | + + + | Address | Unknown | + + + | Phone | Unavailable | + + + Support + + +---------+ + | Name | Relationship | Address | Phone | + + +---------+ + | Jaswinder Black | ECON | Unknown | | + + +---------+ + Care Team Providers + +------+ + | Care Operations Assistant Name | Role | Phone | + +------+ + | Waqar Mehdi | PCP | | + +------+ + Reason for Visit + + + | Reason | Comments | + + + | Decreased vision | ERG Lab | + + + Encounter Details +--------+ + + + + | Date | Type | Department | Care Team | Description | +--------+ + + + + | 10/30/ | Procedure | [facility] | Erg, [address] | Decreased vision | | 2014 | | [facility] | [address] | (ERG Lab) | | | | at [facility] [address] [place], [place] | | | | | [facility] [address] | [address] | | | | | Eye [place], [facility] | | | | | | [place], [place] | | | | | | [address] | | | +--------+ + + + [...] documented as of this encounter Progress Notes Tracy Payne 10/31/2014 11:48 AM PDT Theresa Black is a 54 year old F with visual field loss Referring Doctor: Dr. Hans Sim Acuity OD: nt ERG Date: 10/30/2014 Acuity OS: nt ERG Number: [id number] & [id number] Electrode OD: 1127 ERG Type: mf & FF Electrode OS: 5116 Linoleum Layer: Tracy Payne mfER Dilation: m & n x 1 ou Pupil OD: 9.0 Iris Color: blue Pupil OS: 9.0 Remarks: MfERG:procedure tolerated very well, able to see 'x' ou, fair fixation ou, slight head turn to the left during testing ou FfERG:procedure tolerated well Multifocal ERG Methods: The mfERG testing was done for each eye separately using the [employer] system with 6.0.3 Daegis software with a Burian-Kishor bipolar contact lens electrode and 0.5% proparacaine topic al anesthesia. Pupils were dilated to 9.0 mm OU. A +5.00 D lens was used OD and a +5.00 le ns used for OS for the 40 cm test distance. The monitor was the 21-inch [employer] monochromatic unit with a refresh rate of 75 Hz. The stimulus consisted of 103 hexagon e lements that covered the central field out to approximately 20 degrees from fixation. The h exagons were modulated between a light (200 cd/m2) and dark (2 cd/m2) state according to bin denton, pseudorandom m sequence (m-sequence exponent = 15). The fixation target was a small cr oss in the center hexagon, which the patient could 'see'. The signals were amplified 100,00 0 times with a bandpass of 10-300 Hz using the [employer] P511 preamplifiers. Testing was split i nto 8 fifty-second test segments with brief rest periods in between. Scalar-product tracings, ring arrays, amplitudes, implicit times, scalar-product plots, and plot numeric values were examined for both first- and second-order components of the multif ocal ERG and were compared with normals. Three iterations of artifact removal but no additi onal spatial averaging were applied to the first-order responses. One iteration of 17% spat ial averaging was used for second-order responses. Multifocal ERG Interpretation 10/30/2014: Amplitude Density Plot [...] low, and are likely due to medications. Tracy Payne ERG Linoleum Layer Alber Medina M.D., Ph.D. Model Maker Plastic Ophthalmic Genetics & Retinal Degeneration Ocular Immunology & Uveitis documented in this enc ounter Plan of [...]
--- OUTSIDE RECORDS SUMMARY | ~2020-02-27 | XMS | Encounter Summary ---
Demographics + + + | Address | [address] | | | [place] [address] | + + + | Home Phone | | + + + | Preferred Language | Unknown | + + + | Marital Status | Single | + + + | Baptism Affiliation | Unknown | + + + | Race | White | + + + | Ethnic Group | Not or | + + + Author + + + | Author | [facility] | + + + | Organization | [facility] | + + + | Address | Unknown | + + + | Phone | Unavailable | + + + Support + + +---------+ + | Name | Relationship | Address | Phone | + + +---------+ + | Jaswinder Black | ECON | Unknown | | + + +---------+ + Care Team Providers + +------+ + | Care Systems Lead Name | Role | Phone | + +------+ + | Mehdi Zavaleta | PCP | | + +------+ + Reason for Visit + + + | Reason | Comments | + + + | Medical Records | [facility] Intake | | Review | | + + + Encounter Details +--------+ + + + + | Date | Type | Department | Care Team | Description | +--------+ + + + + | 12/12/ | Abstract | [facility] | [facility]ol[facility] | Medical Records | | 2014 | | [facility] | [facility] [place] | Review ([facility] | | | | at [facility] [address] | [phone] | Intake) | | | | [facility] [address] | | | | | | Eye [place], [address] | | | | | | floor [place], [place] | | | | | | [address] | | | +--------+ + + + [...] documented as of this encounter Progress Notes Blossom Arvizu - 05/30/2014 1:14 PM PST54 y.o. female referred for functional VF loss vs s ubclinical RPE or retinal dystrophy by Dr Hans Benoit. Per referring, dry AMD, abnml ERG /VEP. MRI 01/09/14 brain/orbits WNL. 05/30/14: ERG/VEP report requested from Dr Sim's office. Requested MRI images be pushed to radiology from [facility]. Blossom Arvizu MS, [facility] Genetic Counselor Ophthalmic Genetics Service documented in this encount er Plan of Treatment Not on filedocumented as of this encounter Visit Diagnoses Not on filedocumented in this encounter"
--- OUTSIDE RECORDS SUMMARY | ~2020-02-27 | XMS | Clinical Summary ---
Demographics + + + | Address | [address] | | | [place] [address] | + + + | Home Phone | | + + + | Preferred Language | Unknown | + + + | Marital Status | Single | + + + | Pentecostalism Affiliation | Unknown | + + + [...] Team Providers + +------+ + | Care Business Account Leader Name | Role | Phone | + +------+ + | Mehdi Zavaleta | PCP | | + +------+ + Source Comments STEVEN is fully live on both [facility] and [facility] Allergies No Known Allergies Medications + + + +---------+------+------+-------+ | Medication | Sig | Dispensed | Refills | Star | End | Statu | | | | | | t | Date | s | | | | | | Date | | | + + + +---------+------+------+-------+ | DIPHENHYDRAMINE | Take by mouth. | | 0 | | | Activ | | HCL (BENADRYL ORAL) | | | | | | e | + + + +---------+------+------+-------+ | busPIRone 15 mg | Take 15 mg by mouth | | 0 | | | Activ | | oral tablet | two times daily. | | | | | e | + + + +---------+------+------+-------+ | divalproex ER 250 | Take 250 mg by mouth | | 0 | | | Activ | | mg oral tablet | once daily. | | | | | e | | extended release 24 | | | | | | | | hr | | | | | | | + + + +---------+------+------+-------+ | venlafaxine XR 150 | Take 150 mg by mouth | | 0 | | | Activ | | mg oral | two times daily. | | | | | e | | capsule,extended | | | | | | | | release 24hr | | | | | | | + + + +---------+------+------+-------+ | famotidine 40 mg | Take 40 mg by mouth | | 0 | | | Activ | | oral tablet | two times daily. | | | | | e | + + + +---------+------+------+-------+ | gabapentin 300 mg | Take 300 mg by mouth | | 0 | | | Activ | | oral capsule | three times daily. | | | | | e | + + + +---------+------+------+-------+ | gabapentin 600 mg | Take 600 mg by mouth | | 0 | | | Activ | | oral tablet | three times daily. | | | | | e | + + + +---------+------+------+-------+ | glipiZIDE 2.5 mg | Take 2.5 mg by mouth | | 0 | | | Activ | | oral tablet | once daily with | | | | | e | | | breakfast. | | | | | | + + + +---------+------+------+-------+ | sitaGLIPtin | Take 50 mg by mouth | | 0 | | | Activ | | (JANUVIA) 50 mg oral | once daily. | | | | | e | | tablet | | | | | | | + + + +---------+------+------+-------+ | levothyroxine 50 | Take 50 mcg by mouth | | 0 | | | Activ | | mcg oral tablet | once daily. | | | | | e | + + + +---------+------+------+-------+ | pravastatin 20 mg | Take 20 mg by mouth | | 0 | | | Activ | | oral tablet | once daily at | | | | | e | | | bedtime. | | | | | | + + + +---------+------+------+-------+ | prazosin 2 mg oral | Take 2 mg by mouth | | 0 | | | Activ | | capsule | two times daily. | | | | | e | + + + +---------+------+------+-------+ | beclomethasone 40 | Inhale 2 puffs. | | 0 | | | Activ | | mcg/actuation | | | | | | e | | inhalation aerosol | | | | | | | | (aero) | | | | | | | + + + +---------+------+------+-------+ | cholecalciferol, | Take 2,000 Units by | | 0 | | | Activ | | Vitamin D3, (VITAMIN | mouth once daily. | | | | | e | | D3) 2,000 unit oral | | | | | | | | capsule | | | | | | | + + + +---------+------+------+-------+ | senna (SENNA) 8.6 | Take 8.6 mg by mouth | | 0 | | | Activ | | mg oral tablet | once daily. | | | | | e | + + + +---------+------+------+-------+ | CALCIUM CARBONATE | Take by mouth. | | 0 | | | Activ | | (CALTRATE 600 ORAL) | | | | | | e | + + + +---------+------+------+-------+ | MAGNESIUM ORAL | Take 50 mg by mouth. | | 0 | | | Activ | | | | | | | | e | + + + +---------+------+------+-------+ | | Take by mouth. | | 0 | | | Activ | | MV/FA/D3/K/LYCOP/LUT | | | | | | e | | /HERB#220 | | | | | | | | (ESTROBLEND ORAL) | | | | | | | + + + +---------+------+------+-------+ Active Problems + + + | Problem [...] on file | | + + + Last Filed Vital Signs Not on file Plan of Treatment + + +-------+ + | Health Maintenance | Due Date | Last | Comments | | | | Done | | + + +-------+ + | Influenza (Flu) | | | | | vaccination (#1) | 0 | | | + + +-------+ + | Pneumococcal | Aged Out | | No longer eligible based on patient's age | | vaccination | | | to complete this topic | + + +-------+ + Results Not on filefrom Last 3 Months Insurance + +--------+ +--------+-------+---------+--------+ | Payer | Benefi | Subscriber | Effect | Phone | Address | Type | | | t Plan | ID | gianna | | | | | | / | | Dates | | | | | | Group | | | | | | + +--------+ +--------+-------+---------+--------+ | BOILER SERVICE TECHNICIAN MEDICAID | BOILER SERVICE TECHNICIAN | [id number] | | | | Medica | | | [place] | | 014-Pr | | | id | | | [place] | | esent | | | | + +--------+ +--------+-------+---------+--------+ + +--------+ +--------+ + + | Guarantor Name | Accoun | Relation to | Date | Phone | Billing Address | | | t Type | Patient | of | | | | | | | | | | + +--------+ +--------+ + + | Theresa Black | Person | Self | [birth year] | [address] | | | al/Dheeraj | | 1960 | [phone] | [address] [place] | | | [place] | | | [address] (Home) | [phone] | + +--------+ +--------+ + +"
--- OUTSIDE RECORDS SUMMARY | ~2020-02-27 | XMS | Encounter Summary ---
Demographics + + + | Address | [address] | | | [place] [address] | + + + | Home Phone | | + + + | Preferred Language | Unknown | + + + | Marital Status | Single | + + + | Scientologist Affiliation | Unknown | + + + | Race | White | + + + | Ethnic Group | Not or | + + + Author + + + | Author | [facility] | + + + | Organization | [facility] | + + + | Address | Unknown | + + + | Phone | Unavailable | + + + Support + + +---------+ + | Name | Relationship | Address | Phone | + + +---------+ + | Jaswinder Black | ECON | Unknown | | + + +---------+ + Care Team Providers + +------+ + | Care Utilities Ground Worker Name | Role | Phone | + +------+ + | Waqar Mehdi | PCP | | + +------+ + Reason for Visit + +--------+ + | Reason | Onset | Comments | | | Date | | + +--------+ + | Visual field testing | 10/30/ | | | | 2014 | | + +--------+ + Encounter Details +--------+ + + + + | Date | Type | Department | Care Team | Description | +--------+ + + + + | 05/14/ | Procedure | [facility] | | Visual field testing | | 2014 | | [facility] | | | | | | [place] at [facility] | | | | | | [address] | | | | | | [address] [facility] | | | | | | [place], [address] floor | | | | | | [place] [address] | | | | | | [phone] | | | +--------+ + + + [...] documented as of this encounter Progress Notes Miguel Pandya - 10/30/2014 2:39 PM PDT Theresa Black was seen in the [facility] [place] [facility] [place] Department today, 015, for Gi W164a Size V and kinetic OU. documented in this encounter Plan of Treatment Not [...]
--- OUTSIDE RECORDS SUMMARY | ~2020-02-27 | XMS | Encounter Summary ---
Demographics + + + | Address | [address] | | | [place] [address] | + + + | Home Phone | | + + + | Preferred Language | Unknown | + + + | Marital Status | Single | + + + | Adventist Affiliation | Unknown | + + + | Race | White | + + + | Ethnic Group | Not or | + + + Author + + + | Author | [facility] | + + + | Organization | [facility] | + + + | Address | Unknown | + + + | Phone | Unavailable | + + + Support + + +---------+ + | Name | Relationship | Address | Phone | + + +---------+ + | Jaswinder Black | ECON | Unknown | | + + +---------+ + Care Team Providers + +------+ + | Care Optical Lens Manufacturing Tech Name | Role | Phone | + +------+ + | Mehdi Zavaleta DO | PCP | | + +------+ + Reason for Referral Diagnostic Testing +--------+--------+ + + + + | Status | Reason | Specialty | Diagnoses / | Referred By | Referred To | | | | | Procedures | Contact | Contact | +--------+--------+ + + + + | Closed | | Clinical | Procedures | Cnl Eeg | Cnl Eeg Hrc | | | | Neurophysiolo | EEG | [address] | | | | gy | ROUTINE | Ricky [address] | Charly Rocha | | | | | | Josefina Hoang | Viktor Castellon | | | | | | C[facility] | Research | | | | | | Research | Center, [address] | | | | | | [place], [address] | Floor | | | | | | Floor | [place], [place] | | | | | | [place], [place] | [address] | | | | | | [address] | Phone: | | | | | | Phone: | [phone] | | | | | | [phone] | Fax: | | | | | | Fax: | [phone] | | | | | | [phone] | | +--------+--------+ + + + + Encounter Details +--------+ + + + + | Date | Type | Department | Care Team | Description | +--------+ + + + + | 02/13/ | Outside | Neurophysiology | Mehdi Zavaleta DO | | | 2012 | Referral | EEG at [facility] [address] | [facility] | | | | Order | [address] | Internal Medicin | | | | | [facility] | [address] [facility] | | | | | [place], [address] | [place] [address] | | | | | [place], [place] | [phone] | | | | | [address] | | | | | | [phone] | | | +--------+ + + + [...] + + documented as of this encounter Plan of Treatment Not on filedocumented as of this encounter Procedures + +--------+ + + + | Procedure Name | Priori | Date/Time | Associated Diagnosis | Comments | | | ty | | | | + +--------+ + + + | EEG ROUTINE | Routin | 02/06/2013 | | Results for this | | | e | | | procedure are in the | | | | | | results section. | + +--------+ + + + documented in this encounter Results EEG ROUTINE (02/06/2013) + + | Specimen | + + | | + + + + + | Narrative | Performed At | + + + | Patient Name: Theresa Black Date of : 1960 | | | Date of Test: 02/06/2013 Place of | | | Service: [facility] Department: EEG [facility] - [id number] | | | ROUTINE EEG Indication: evaluate for epileptiform abnormlities | | | History: 52 y/o female with epilepsy (last seizure 2008), diabetes, | | | hypothyroidism, schizoaffective disorder, and mild mental retardation | | | with recent unexplained episodes of symptoms, with right hand pain | | | and swelling, concerning for possible seizures. EEG was requested to | | | evaluate for epileptiform abnormalities/seizures. Medications: | | | - clonazepam - pravastatin - famotidine - cymbalta - | | | trazodone - diphenhydramine PRN - gabapentin - Januvia - Naprosyn | | | - levoxyl - Septra - aspirin - buspar - depakote Methods: | | | This study was a Routine EEG with a duration of 26 minutes. The | | | digital recording was performed with routine electrodes applied | | | according to the 10-20 electrode placement system. The record | | | included video, EKG, and EOG monitoring. EEG was reviewed | | | electronically. Automated digital spike and seizure detection | | | analysis was used, along with patient-activated alarms and nursing | | | observations. EEG Description Interictal Record: In the | | | maximally awake and alert state, the record shows a poorly formed, | | | poorly sustaine, posterior dominant rhythm of 8-9 Hz of moderate | | | amplitude that attenuates with eye opening. Prominent lower voltage, | | | faster frequency beta activity was present diffusely. No focal | | | slowing or epileptiform discharges were present. The patient briefly | | | appeared drowsy, but no segment of Stage I or Stage II sleep was | | | recorded. Stage II sleep is characterized by symmetric sleep | | | spindles, vertex waves, and K-complexes. Sweat artifact was | | | frequently noted over the frontal electrodes. Activation: | | | Hyperventilation was performed for 3 minutes and produced no abnormal | | | responses. Photic stimulation was performed and produced a symmetric | | | driving response, but no photoparoxysmal discharges or other | | | abnormal responses. Events/Seizures: No electrographic seizures | | | were recorded. No clinical events were reported or observed. | | | EKG: The single-channel EKG recording shows a normal sinus rhythm. | | | Interpretation: This is a normal awake and drowsy EEG. No focal | | | slowing or epileptiform discharges were identified. No electrographic | | | seizures were recorded. Prominent beta activity was present | | | diffusely, which is likely due to medication effect (i.e. | | | Benzodiazepines, barbiturates). A normal EEG does not rule out a | | | diagnosis of epilepsy. Clinical correlation is advised. Darío | | | Kj Mccain Suggested CPT: 82657 - EEG Routine Awake Only | | | Suggested Dx: 345.9- Epilepsy, Unspecified | | + + + documented in this encounter Visit Diagnoses Not on filedocumented in this encounter"
--- OUTSIDE RECORDS SUMMARY | ~2020-02-27 | XMS | Encounter Summary ---
Demographics + + + | Address | [address] | | | [place] [address] | + + + | Home Phone | | + + + | Preferred Language | Unknown | + + + | Marital Status | Single | + + + | Sikhism Affiliation | Unknown | + + + | Race | White | + + + | Ethnic Group | Not or | + + + Author + + + | Author | [facility] | + + + | Organization | [facility] | + + + | Address | Unknown | + + + | Phone | Unavailable | + + + Support + + +---------+ + | Name | Relationship | Address | Phone | + + +---------+ + | Jaswinder Black | ECON | Unknown | | + + +---------+ + Care Team Providers + +------+ + | Care Disc Jockey Name | Role | Phone | + +------+ + | Mehdi Zavaleta DO | PCP | | + +------+ + Reason for Visit + + + | Reason | Comments | + + + | Fluorescein | OU | + + + Encounter Details +--------+ + + + + | Date | Type | Department | Care Team | Description | +--------+ + + + + | 10/31/ | Diagnostic | [facility] | | Fluorescein (OU) | | 2015 | Visit | [place] | | | | | | Photography at | | | | | | [address] | | | | | | [address] [place] | | | | | | Eye [place], [facility] | | | | | | floor [place], [place] | | | | | | [address] | | | +--------+ + + + [...] + + documented as of this encounter Liz Du - 10/31/2014 4:03 PM PDTThe interpretation for the following study: Rai - OU can be found on physician encounter on 10/31/2014. documented in this encounter Plan of Treatment Not on filedocumented as of this encounter Visit Diagnoses + + | Diagnosis | + + | Subjective visual disturbance, unspecified | + + | Visual field defect, unspecified | + + documented in this encounter"
--- OUTSIDE RECORDS SUMMARY | ~2020-02-27 | XMS | Encounter Summary ---
Demographics + + + | Address | [address] | | | [place] [address] | + + + | Home Phone [...] Author + + + | Author | [facility] | + + + | Organization | [facility] | + + + | Address | Unknown | + + + | Phone | Unavailable | + + + Support + + +---------+ + | Name | Relationship | Address | Phone | + + +---------+ + | Jaswinder Black | ECON | Unknown | | + + +---------+ + Care Team Providers + +------+ + | Care Marine Animal Trainer Name | Role | Phone | + +------+ + | Mehdi Zavaleta DO | PCP | | + +------+ + Reason for Visit + + + | Reason | Comments | + + + | Medical Records | ERG test results mailed to Dr. Barber Sim on 11-12-2014. -cw | | Release | | + + + Encounter Details +--------+ + + + + | Date | Type | Department | Care Team | Description | +--------+ + + + + | 11/12/ | Abstract | [facility] | Alber Medina MD,PhD | Medical Records | | 2015 | | [facility] | [address] | Release (ERG test | | | | at [facility] [address] | results mailed to | | | | [facility] [address] | [place], [place] | Dr. Barber Sim | | | | [facility] [place], [facility] | [phone] | on 11-12-2014. -) | | | | [place], [place] | [phone] | | | | | [address] | [...]
--- OUTSIDE RECORDS SUMMARY | ~2020-02-27 | XMS | Encounter Summary ---
Demographics + + + | Address | [address] | | | [place] [address] | + + + | Home Phone | | + + + | Preferred Language | Unknown | + + + | Marital Status | Single | + + + | Quaker Affiliation | Unknown | + + + | Race | White | + + + | Ethnic Group | Not or | + + + Author + + + | Author | [facility] | + + + | Organization | [facility] | + + + | Address | Unknown | + + + | Phone | Unavailable | + + + Support + + +---------+ + | Name | Relationship | Address | Phone | + + +---------+ + | Jaswinder Black | ECON | Unknown | | + + +---------+ + Care Team Providers + +------+ + | Care Rewind Operator Name | Role | Phone | + +------+ + | Mehdi Zavaleta DO | PCP | | + +------+ + Encounter Details +--------+ + + + + | Date | Type | Department | Care Team | Description | +--------+ + + + + | 10/30/ | Results/Int | [facility] | Alber Medina MD,PhD | Subjective visual | | 2015 | erpretation | [facility] | [address] | disturbance, | | | | at [facility] [address] | unspecified (Primary | | | | [address] | [place], [place] | Dx); Visual field | | | | [facility] [place], [facility] | [address] | defect, unspecified | | | | floor [place], [place] | [phone] | | | | | [address] | [...] documented as of this encounter Progress Notes Alber Medina MD,PhD - 10/30/2014 3:49 PM PDT Fundus Photography Interpretation 10/30/2014: Dilated fundus photography demonstrated clear media in both eyes. In both eyes, the disc and vessels were unremarkable, but there were small yellow deposits in the macula O U. -Fundus Autofluorescence (AF) imaging showed small hyperAF deposits scattered in the macula OU. Spectral Domain OCT Interpretation 10/30/2014: Line scans showed intact laminations and outer retinal architecture, and tiny de posits at level of RPE OU. -CFT was 238 microns OD and 243 microns OS. -RNFL mapping showed no thinning OD and no thinning OS. Visual Tom[place]kins Interpretation 10/30/2014: Using the Octopus 900 perimeter, [...] likelihood of a diffuse retinal dys trophy low. Outside Imaging MRI orbits/brain w and wo 01/09/2014: "...orbits appear normal...no abnormal enhancement of optic nerve or chiasm..Terry wth and development seemed normal. 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 on Octopus 900 VF Intact macular architecture with tiny deposits in RPE OU on sdOCT Normal RNFL thickness OU on sdOCT Normal macular cone responses OU on mfERG Mild unspecific changes OU on ffERG Normal MRI orbits/brain 10/10/2013Electronically signed by Alber Medina MD,PhD at 4:16 PM PDTdocumented in this encounter Plan of Treatment + + +--------+ + + | Name | Type | Priori | Associated Diagnoses | Order Schedule | | | | ty | | | + + +--------+ + + | FLUORESCEIN | Procedures | Routin | Subjective visual | Expected: | | ANGIOGRAM | | e | disturbance, | 10/30/2014, Expires: | | | | | unspecified Visual | 05/02/2016 | | | | | field defect, | | | | | | unspecified | | + + +--------+ + + documented as of this encounter Visit Diagnoses + + | Diagnosis | + + | Subjective visual disturbance, unspecified - Primary | + + | Visual field defect, unspecified | + + documented in this encounter
[~2020-02-27 11:39] MED LIST changes: +DEPAKOTE500 MG PO; +MAGNESIUM250 M1 PO; +NEURONTIN600 MG PO; +SEROQUEL100 MG PO
--- OUTSIDE RECORDS SUMMARY | 2020-02-27 11:42 | XMS ---
PreManage Notification: MARCO DURAN Security Bottle Packing Machine Cleaner Events No recent Security Events currently on file CRITERIA MET - Group Notification CARE PROVIDERS NUBIA MUSA Internal Medicine 02/20/2018-Current PHONE: [phone] Mariely has no Care Guidelines for this patient. Care History Medical/Surgical 02/20/2018 [facility] - Patient is currently established with [facility]. If patient is seen in the ED during business hours. Please contact CHWs at [facility]. Care Recommendation: This patient has had 5 [...] providing care. E.D. VISIT COUNT (12 MO.) [address] [facility] TOTAL 1 NOTE: Visits indicate total known visits. ED/UCC VISIT TRACKING (12 MO.) 02/27/2020 11:[address] [facility] [place] TYPE: Emergency COMPLAINT: - FALL, HEAD INJURY INPATIENT VISIT TRACKING (12 MO.) No inpatient visits to display in this time frame [id number]
== END 2020-02-27 13:30 | disposition short-term general hospital (02) ==
LOC: ED 11:39
DX: S06.5X0A Traumatic subdural hemorrhage without loss of consciousness, initial encounter (principal); E11.9 Type 2 diabetes mellitus without complications; Z91.030 Bee allergy status; Z88.8 Allergy status to other drugs, medicaments and biological substances; Z88.5 Allergy status to narcotic agent; Z88.1 Allergy status to other antibiotic agents; Z79.899 Other long term (current) drug therapy; W10.9XXA Fall (on) (from) unspecified stairs and steps, initial encounter
CPT/HCPCS: 31500; 31720; 70450; 71045; 72125; 80053; 80164; 82150; 82550; 83690; 85025; 86850; 86900; 86901; 94002; 96361; 96374; 96375; 99284-25; G0480; J7121